=== PATIENT | female | born 1975 ===

== ENCOUNTER 2024-05-29 10:02 | Emergency (ER) | payer SELFPAY ==
[~2024-05-29] VITALS: Ht 167.6 cm; Wt 60.3 kg
[2024-05-29 10:13] VITALS: O2SAT 99
[2024-05-29] MEDS ORDERED: IBUP-2029 MT (10:33)
[2024-05-29] MEDS ORDERED: METH-653 MT (10:33)
[2024-05-29] MEDS: METHOCARBAMOL 500MG TABLET PO ONE (10:54)
[2024-05-29] MEDS: KETOROLAC 30MG/ML VIAL IM ONE (10:54)
[2024-05-29 10:57] VITALS: BP 124/78; PULSE 81; RESP 16; TEMP 98.3
== END 2024-05-29 11:04 | disposition home or self-care (01) ==
LOC: ER 10:17
DX: S13.8XXA Sprain of joints and ligaments of other parts of neck, initial encounter (principal); M50.20 Other cervical disc displacement, unspecified cervical region; Z98.890 Other specified postprocedural states; Z88.0 Allergy status to penicillin; X58.XXXA Exposure to other specified factors, initial encounter; Y93.89 Activity, other specified; Y92.89 Other specified places as the place of occurrence of the external cause; Y99.8 Other external cause status
CPT/HCPCS: 96372; 99283; J1885; Z7610